=== PATIENT | female | born 1980 | race Caucasian/White ===

== ENCOUNTER 2021-07-08 15:12 | Outpatient (CLI) | payer SELFPAY ==
--- NOTE | 2021-07-08 15:20 | MM_ITS ---
WS: [id number] BILATERAL SCREENING DIGITAL MAMMOGRAM WITH CAD HISTORY: SCREENING COMPARISON: 08/23/2017, 04/01/2017, 03/01/2017 Bilateral CC and MLO views submitted. Computer aided detection analyzed. Breast composition: The breasts are heterogeneously dense, which may obscure small masses. There are numerous calcifications in the posterior central RIGHT breast. These calcifications were also present on the study from 08/23/2017 but significantly decreased in the number. Patient has had a prior biops y in this location and reported as benign. There are benign calcifications within the LEFT breast. MM/[id number] IMPRESSION: BI-RADS: 2-Benign FOLLOW UP: 1 Year Follow-up
== END 2021-07-08 15:13 | disposition home or self-care (01) ==
LOC: RADSHAW 15:18
PROVIDERS: PCP Family Medicine; Visit Provider Family Medicine
DX: Z12.31 Encounter for screening mammogram for malignant neoplasm of breast (principal)
CPT/HCPCS: 77067

== ENCOUNTER → 2022-10-14 10:25 | Outpatient (BNVA) | payer SELFPAY | PROVIDERS: PCP Family Medicine; Visit Provider Family Medicine | DX: Z01.419 Encounter for gynecological examination (general) (routine) without abnormal findings (principal); Z13.220 Encounter for screening for lipoid disorders; E03.9 Hypothyroidism, unspecified; R53.81 Other malaise; R53.83 Other fatigue; L65.9 Nonscarring hair loss, unspecified; Z51.81 Encounter for therapeutic drug level monitoring | CPT/HCPCS: 80053; 80061; 84439; 84443; 85025; 88175 ==

== ENCOUNTER → 2024-12-19 12:23 | Outpatient (BNVA) | payer SELFPAY | PROVIDERS: PCP Family Medicine; Visit Provider Family Medicine | DX: L98.9 Disorder of the skin and subcutaneous tissue, unspecified (principal) | CPT/HCPCS: 87255 ==